=== PATIENT | female | born 1950 | race Two or more races ===

== ENCOUNTER 2023-02-24 13:25 | Outpatient (CLI) | payer OTHER | END 2023-02-24 13:28 | disposition home or self-care (01) | LOC: SONOGRAMA 13:25 | PROVIDERS: ATTEND Pathology Anatomic Pathology & Clinical Pathology | DX: D34 Benign neoplasm of thyroid gland (principal); E04.9 Nontoxic goiter, unspecified; E06.5 Other chronic thyroiditis ==